=== PATIENT | male | born 1965 | race Caucasian/White ===

== ENCOUNTER 2018-10-19 19:45 | Emergency (ER) | payer OTHER ==
[~2018-10-19] VITALS: Ht 172.7 cm; Wt 113.4 kg
[2018-10-19] MEDS ORDERED: CEPHALEXIN500 MG PO (20:51)
== END 2018-10-19 21:00 | disposition home or self-care (01) ==
LOC: ED 19:45
DX: K02.9 Dental caries, unspecified (principal); F17.200 Nicotine dependence, unspecified, uncomplicated; Z79.899 Other long term (current) drug therapy
CPT/HCPCS: 99282

== ENCOUNTER 2021-01-10 09:55 | Emergency (ER) | payer OTHER ==
[~2021-01-10] VITALS: Ht 172.7 cm; Wt 77.1 kg
[~2021-01-10 09:55] MED LIST: CEPHALEXIN500 MG PO
[2021-01-10] MEDS ORDERED: HYDROCODON-ACE1 EA11 PO (11:16)
[2021-01-10] MEDS ORDERED: PENICILLIN V P500 MG PO (11:16)
== END 2021-01-10 11:26 | disposition home or self-care (01) ==
LOC: ED 09:55
DX: K04.7 Periapical abscess without sinus (principal); F17.200 Nicotine dependence, unspecified, uncomplicated
CPT/HCPCS: 99282; A9270

== ENCOUNTER 2021-01-29 13:22 | Emergency (ER) | payer OTHER ==
[~2021-01-29] VITALS: Ht 172.7 cm; Wt 77.1 kg
[~2021-01-29 13:22] MED LIST changes: +HYDROCODON-ACE1 EA11 PO; +PENICILLIN V P500 MG PO
--- OUTSIDE RECORDS SUMMARY | 2021-01-29 13:26 | XMS ---
PreManage Notification: ANDREIA ROY Security [employer] Events No recent Security Events currently on file CRITERIA MET - [facility] - 2 Visits in 30 Days CARE PROVIDERS There are no care providers on record at this time. Ellen has no Care Guidelines for this patient. [facility]12 MO.) [facility] NOTE: Visits indicate total known visits. ED/C VISIT TRACKING (12 MO.) 01/29/2021 13:23 [facility] [place] TYPE: Emergency COMPLAINT: - TOOTH ISSUE 01/10/2021 09:55 [facility] [place] TYPE: Emergency COMPLAINT: - FACIAL SWELLING DIAGNOSES: - Nicotine dependence, unspecified, uncomplicated - Periapical abscess without sinus - Other specified disorders of teeth and supporting structures INPATIENT VISIT TRACKING (12 MO.) No inpatient visits to display in this time frame [email or web address]
[2021-01-29] MEDS ORDERED: HYDROCODON-ACE1 EA10 PO (13:51)
[2021-01-29] MEDS ORDERED: CLEOCIN HCL300 MG PO (13:51)
== END 2021-01-29 14:05 | disposition home or self-care (01) ==
LOC: ED 13:22
DX: K04.7 Periapical abscess without sinus (principal); F17.200 Nicotine dependence, unspecified, uncomplicated
CPT/HCPCS: 99282

== ENCOUNTER 2021-03-11 17:20 | Emergency (ER) | payer OTHER ==
[~2021-03-11] VITALS: Ht 172.7 cm; Wt 77.1 kg
[~2021-03-11 17:20] MED LIST changes: +CLEOCIN HCL300 MG PO; +HYDROCODON-ACE1 EA10 PO
== END 2021-03-11 19:00 | disposition left against medical advice (07) ==
LOC: ED 17:20
DX: S00.81XA Abrasion of other part of head, initial encounter (principal); F17.200 Nicotine dependence, unspecified, uncomplicated; W22.8XXA Striking against or struck by other objects, initial encounter
CPT/HCPCS: 99283-25

== ENCOUNTER 2021-06-01 19:27 | Emergency (ER) | payer OTHER ==
[~2021-06-01] VITALS: Ht 172.7 cm; Wt 80.3 kg
[2021-06-01] MEDS ORDERED: DOXYCYCLINE HY100 MG PO (23:30)
== END 2021-06-01 23:45 | disposition home or self-care (01) ==
LOC: ED 19:27
DX: L98.419 Non-pressure chronic ulcer of buttock with unspecified severity (principal); L98.499 Non-pressure chronic ulcer of skin of other sites with unspecified severity; L03.113 Cellulitis of right upper limb; F17.200 Nicotine dependence, unspecified, uncomplicated
CPT/HCPCS: 99283

== ENCOUNTER 2021-07-13 17:51 | Emergency (ER) | payer OTHER ==
[~2021-07-13] VITALS: Ht 172.7 cm; Wt 80.3 kg
[~2021-07-13 17:51] MED LIST changes: +DOXYCYCLINE HY100 MG PO
[2021-07-13] MEDS ORDERED: PENICILLIN V P500 MG PO (18:06)
== END 2021-07-13 18:21 | disposition home or self-care (01) ==
LOC: ED 17:51
DX: K08.89 Other specified disorders of teeth and supporting structures (principal); K02.9 Dental caries, unspecified; F17.200 Nicotine dependence, unspecified, uncomplicated; Z79.899 Other long term (current) drug therapy
CPT/HCPCS: 99282